=== PATIENT | female | born 1980 | race African-American/Black ===

== ENCOUNTER 2017-06-17 21:25 | Inpatient (IN) | payer MEDICAID ==
--- NOTE | 2017-06-17 22:04 | ED Physician Chart ---
Chief Complaint/HPI - Patient Information Date Seen:: 06/17/17 Time Seen:: 21:30 Chief Complaint:: Palpitations History of Present Illness:: onset x one week of palpitations, Chest Pain, Abd. Pain, dizziness, diaphoresis , pt denies H/As, Neck Pain, A/N/V/D/c, fever, chills, or urinary s/s Allergies:: Allergies Allergy/AdvReac Type Severity Reaction Status Date / Time Compazine, Metronidazole AdvReac Intermediate Uncoded 10/10/13 06:08 Vitals:: Vital Signs - 8 hr 06/17/17 21:30 Temp 97.6 F HR 78 RR 18 BP 163/107 O2 Sat % 98 Historian:: Patient Review:: Nurse's Note Reviewed Review of Systems - Review of Systems General/Constitutional: Chills, No weight loss, Weakness, No diaphoresis, No edema, No loss of appetite Skin: No skin lesions, No rash, No bruising Head: Headache, Light headed Eyes: No loss of vision, No pain, No diplopia ENT: No earache, No nasal drainage, No sore throat, No tinnitus Neck: No neck pain, No swelling, No thyromegaly, No stiffness, No mass noted Cardio Vascular: Chest pain, Palpitations, No PND, No orthopnea, No edema Pulmonary: SOB, Cough, No sputum, No wheezing GI: Nausea, Vomiting, Pain, No melena, No hematochezia, Constipation, No hematemesis G/U: No dysuria, No frequency, No hematuria Public We[employer]her: No vaginal discharge, Abnormal vaginal bleeding, No contraction Musculoskeletal: No bone or joint pain, No back pain, No muscle pain Endocrine: No polyuria, No polydipsia Psychiatric: Prior psych history, Depression, Anxiety, No suicidal ideation, No homicidal ideation, No auditory hallucination, No visual hallucination Hematopoietic: No bruising, No lymphadenopathy Allergic/Immuno: No urticaria, No angioedema Neurological: No syncope, No focal symptoms, Weakness, No paresthesia, Headache , No seizure, Dizziness, No confusion, Vertigo Past Medical History - Past Medical History Obtainable: Yes Past Medical History: HTN, CAD, Dyslipidemia, Thyroid disorder Family History: Heart disease, Diabetes Melitus, HTN Social History: Non Smoker, No Alcohol, No Drug Use, Surgical History: other (Ablation Surgery) Psychiatricy History: Depression Medication: Reviewed Family Medical History - Family Member Sister Hx Family Coronary Artery Disease: Yes Physical Exam - Physical Examination General/Constitutional: Awake, Well-developed, well-nourished, Alert, No distress, GCS 15, Non-toxic appearing, Ambulatory Head: Atraumatic Eyes: Lids, conjuctiva normal, PERRL, EOMI Skin: Nl inspection, No rash, No skin lesions, No ecchymosis, Well hydrated, No lymphadenopathy ENMT: External ears, nose nl, Nasal exam nl, Lips, teeth, gums nl Neck: Nontender, Full ROM w/o pain, No JVD, No nuchal rigidity, No bruit, No mass, No stridor Respiratory: Nl effort/Exclusion, Clear to Auscultation, No Wheeze/Rhonchi/Rales Cardio Vascular: RRR, No murmur, gallop, rubs, NL S1 S2 GI: No tenderness/rebounding/guarding, No organomegaly, No hernia, Normal BS's, Nondistended, No mass/bruits, No McBurney tenderness : No CVA tenderness Extremities: No tenderness or effusion, Full ROM, normal strength in all extremities, No edema, Normal digits & nails Neuro/Psych: Alert/oriented, DTR's symmetric, Normal sensory exam, Normal motor strength, Judgement/insight normal, Mood normal, Normal gait, No focal deficits Misc: normal gait, Normal back, No paraspinal tenderness Labs/Radiology/EKG Results - Lab Results Results: unremarkable - EKG Interpretations EKG Time:: 22:27 Rate & Rhythm: 80; NSR Comments:: LVH; non-specific st-t changes Assessment - Assessment Critical Care Time: one hour ED Septic Shock - . Is Septic Shock (SBP<90, OR Lactate>4 mmol\L) present?: No - <6hrs of presentation: Vital Signs: Vital Signs - 8 hr //17 21:30 Temp 97.6 F HR 78 RR 18 BP 163/107 O2 Sat % 98 Reassessment (Disposition) - Reassessment Reassessment Condition:: Improved - Diagnosis Diagnosis:: Dx: Chest Pain; Angina Pectoris; Palpitations; Vertigo; Dizziness; Labyrinthritis; Unstable Angina - Aftercare/Follow up Instructions Aftercare/Follow-Up Instructions:: Counseled pt regarding lab results/diagnosis & need follow up, Counseled pt & family regarding lab results/diagnosis & need follow up - Patient Disposition Discharge/Transfer:: Acute Care w/in this hosp Accepting Physician:: Dr. Madison Time Called:: 199 Time Responded:: 02:00 Admitted to:: Telemetry Spoke to:: Dr. Madison Admitting Medical Physician:: Dr. Madison Condition at Disposition:: Stable, Improved
[2017-06-17] MEDS ORDERED: Morphine Sulfate 2 mg/mL 1mL Syr IVP ONE (22:05)
[2017-06-17] MEDS ORDERED: Morphine Sulfate 2 mg/mL 1mL Syr ONE (22:18)
[2017-06-17 22:28] LABS: % BASOPHILS 0.5 % (0.0-2.0); % EOSINOPHILS 1.7 % (0.0-5.0); % LYMPHOCYTES 34.4 % (20.0-50.0); % MONOCYTES 6.6 % (2.0-10.0); % NEUTROPHILS 56.8 % (40.0-80.0); HEMATOCRIT 42.2 % (35.0-45.0); HEMOGLOBIN 14.2 gm/dL (11.7-15.5); MEAN CELL VOLUME 93.9 fl (81-100); MEAN CORPUSCULAR HEMOGLOBIN 31.6 pg (27.0-31.0); MEAN CORPUSCULAR HGB CONC 33.6 pg (28.0-36.0); MEAN PLATELET VOLUME 7.7 fl; NEUTROPHILE ABSOLUTE 3.5 Th/cmm (1.8-8.0); PLATELET COUNT 241 Th/cmm (150-400); RED CELL DISTRIBUTION WIDTH 12.4 % (11.5-20.0); WHITE BLOOD COUNT 6.1 Th/cmm (4.8-10.8)
[2017-06-17 22:43] LABS: INR 0.94 (0.5-1.4); PROTHROMBIN TIME (TEST) 9.8 SECONDS (9.5-11.5)
[2017-06-17 22:45] LABS: ALB/GLOB RATIO 1.6 (1.0-1.8); ALKALINE PHOSPHATASE 76 U/L (34-104); ANION GAP 11.5 (7.0-16.0); BILIRUBIN,TOTAL 0.5 mg/dL (0.3-1.0); BUN - UREA NITROGEN 7 mg/dL (7-25); CALCIUM SERUM 9.9 mg/dL (8.6-10.3); CARBON DIOXIDE 22.3 mEq/L (21.0-31.0); CHLORIDE 107 mEq/L (98-107); CHOLESTEROL 183 mg/dL (<200); CREATININE - SERUM 0.7 mg/dL (0.6-1.2); GLUCOSE 89 mg/dL (70-105); POTASSIUM SERUM 3.8 mEq/L (3.5-5.1); SGOT 30 U/L (13-39); SGPT/ALT 34 U/L (7-52); SODIUM SERUM 137 mEq/L (136-145); TRIGLYCERIDES 89 mg/dL (<150)
[2017-06-17 22:57] LABS: BNP 11.5 pg/mL (5.0-100.0)
[2017-06-17 23:14] LABS: TROP I < 0.01 ng/mL (0.01-0.05)
[2017-06-18] MEDS ORDERED: Aspirin 81mg Chewable Tab PO STA (00:36)
[2017-06-18] MEDS ORDERED: Aspirin 81mg Chewable Tab ONE (01:22)
[2017-06-18] MEDS ORDERED: Morphine Sulfate 2 mg/mL 1mL Syr ONE (02:01)
--- NOTE | 2017-06-18 04:12 | Admit Criteria Form ---
Admit Criteria Forms - Admit Criteria Diagnosis: DIZZINESS Clinical Indications for Admission to Inpatient Care (Place 'X' for any and all applicable criteria): Admission is indicated for ANY ONE of the following(1)(2)(3)(4): [X ]I. Inpatient admission required rather than observation care (Also use Dizziness: Observation Care as appropriate) because of ANY ONE of the following: [ ]a) Hemodynamic instability that is severe or persistent [ ]b) Signs or symptoms that are severe or persistent (eg, vomit, orthostasis, inability to ambulate) [ ]c) Cardiac arrhythmias of immediate concern [ ]d) Severe (new) neurologic findings requiring inpatient care as indicated by ANY ONE of the following(6)(7): [ ]1) Cerebral bleeding, ischemia, or vasospasm(8)(9) [ ]2) Increased intracranial pressure or hydrocephalus(10)(11)(12) [ ]3) Papilledema [ ]4) Cerebral edema [ ]5) Mass effect on CT scan [ ]e) Continuous IV infusion of anticoagulation, platelet inhibitor, vasoactive, or antiarrhythmic medication [ ]f) Cerebral bleeding, hydrocephalus, or vasospasm monitoring(14) [ ]g) Increased intracranial pressure or cerebral edema monitoring [ ]h) Vomiting that is severe or persistent [ X]i) Other condition, treatment or monitoring requiring inpatient admission [ ]II. A suspected etiology that requires admission for treatment [ ]III. Acute bacterial labyrinthitis [ ]IV. Cerebellar, brainstem, or cerebral ischemia or hemorrhage (5) Extended stay beyond goal length of stay may be needed for evaluating and treating a specific cause of dizziness, including(32) [ ]a) Head injury (Also use Traumatic Brain Injury, Nonsurgical Treatment guideline) [ ]b) New-onset vertebrobasilar vascular insufficiency [ ]c) Acute Meniere disease with intractable symptoms [ ]d) Cardiac arrhythmias or conduction defects [ ]e) Acute neurologic event causing dizziness [ ]f) Myocardial ischemia [ ]g) Acute bacterial labyrinthitis. [ ]h) Severe acute vestibular neuronitis The original [facility] [employer] content created by [facility] [employer] has been revised. The portions of the content which have been revised are identified through the use of italic text or in bold, and [employer] has neither reviewed nor approved the modified material. All other unmodified content is copyright [facility]. Please see references footnoted in the original [facility] edition 2016 Admit Criteria Met?: Yes
[2017-06-18] MEDS ORDERED: Hydrocodone/APAP 5mg/325mg Tab PO PRN (04:13)
[2017-06-18 04:42] VITALS: BP 163/103
--- NOTE | 2017-06-18 08:36 | Diagnostic Imaging Report ---
Portable chest x-ray History: Pain Allowing for portable technique the heart size is normal. No focal pulmonary parenchymal processes. No hilar or mediastinal abnormalities. Impression: No acute abnormalities.
[2017-06-18] MEDS ORDERED: Non-Formulary Item 1 EA (Alprazolam [Xanax*] 1 MG) PO PRN (10:10)
--- NOTE | 2017-06-18 11:56 | History & Physical ---
ADMIT DATE: 06/18/2017 PATIENT IDENTIFICATION: This is a 36-year-old female. CHIEF COMPLAINT: Chest pain, palpitation, dizziness, abdominal pain. HISTORY OF PRESENT ILLNESS: A 36-year-old female with history of hypertension, coronary artery disease, history of radioablation in 2013, severe gastroesophageal reflux disease, hypothyroidism, anxiety, depression, presented to Emergency Room for evaluation of above-mentioned symptoms. The patient was worked up and subsequently admitted for further management. PAST MEDICAL HISTORY: 1. Hypertension. 2. Coronary artery disease. 3. Hyperlipidemia. 4. Hypothyroidism. 5. History of radioablation surgery. 6. Anxiety, depression. 7. Obesity. MEDICATIONS AT HOME: The patient is taking, which includes Xanax, Abilify, carvedilol, meclizine, methimazole, nitroglycerin, Protonix, promethazine, Zoloft, and tramadol for the pain. ALLERGIES: THE PATIENT IS ALLERGIC TO COMPAZINE, AND METRONIDAZOLE. SOCIAL HISTORY: The patient lives in [facility]. The patient has no history of smoking cigarettes, drinking alcohol, or using street drug use. FAMILY MEDICAL HISTORY: Remarkable for cardiac diseases, diabetes, and hypertension. REVIEW OF SYSTEMS: The patient is complaining about significant amount of upper abdominal pain with some nausea. The patient is also complaining about recurrent chest pain. Denies any headache. Denies any blurred vision, double vision, dysphagia, odynophagia, runny nose, stuffy nose. No history of any seizure or syncopal episode. PHYSICAL EXAMINATION: GENERAL: The patient is alert, awake, oriented, lying in the bed without any acute distress. VITAL SIGNS: Temperature 98.6, pulse is 74, respiratory rate is 18, blood pressure is 130/70. SKIN: Warm to touch. Adequate skin turgor. No petechia, no purpura. HEENT: Normocephalic, atraumatic. Extraocular muscles are intact. Tongue was pink and coated. No oral lesions noted. No exudate noted. External auditory canal and tympanic membranes are well visualized. NECK: Supple, no JVD, no hepatojugular reflux. No lymphadenopathy, thyromegaly or carotid bruit. HEART: Both heart sounds are regular. No S3, no S4, no murmur. CHEST: Lung equal in expansion, no wheezing, no crackles. ABDOMEN: Soft, epigastric tenderness noted. Bowel sounds are present. No palpable mass. EXTREMITIES: No edema, no cyanosis. NEUROLOGIC: Nonfocal. AVAILABLE DIAGNOSTIC DATA: Performed in the Emergency Room, which include CBC, CMP, PT, PTT, EKG, chest x-ray has been reviewed. CLINICAL IMPRESSION: 1. Upper abdominal pain most likely from gastroesophageal reflux disease and severe gastritis, other etiology needs to be ruled out. 2. Chest pain, palpitation, dizziness, I suspect probably from her anxiety. 3. Hypertension. 4. Hyperthyroidism. 5. Anxiety, depression. PLAN: The patient is admitted by me to telemetry unit. Cardiology and GI consultation was requested. Cardiac enzymes were requested. Proton pump inhibitor has been added. The patient will have 3 sets of cardiac enzymes and EKG to rule out for acute myocardial infarction. The patient will be placed on clear liquid diet. We will follow the lab and we will follow the clinical science consultant's recommendations. Care plan has been reviewed and discussed with staff. [facility]# [id number]
[2017-06-19] MEDS ORDERED: Pantoprazole 40 mg EC Tab PO SCH (09:00)
== END 2017-06-18 10:30 | disposition left against medical advice (07) | DRG 241 ==
LOC: ER 21:25 → TELE 06-18 02:15
PROVIDERS: ADMIT Internal Medicine; ATTEND Internal Medicine
DX: K29.70 Gastritis, unspecified, without bleeding (principal); I25.110 Atherosclerotic heart disease of native coronary artery with unstable angina pectoris; I10 Essential (primary) hypertension; K21.9 Gastro-esophageal reflux disease without esophagitis; F41.9 Anxiety disorder, unspecified; F32.9 Major depressive disorder, single episode, unspecified; Z53.21 Procedure and treatment not carried out due to patient leaving prior to being seen by health care provider; E66.9 Obesity, unspecified; E78.5 Hyperlipidemia, unspecified; R42 Dizziness and giddiness; H83.09 Labyrinthitis, unspecified ear; Z79.899 Other long term (current) drug therapy; Z87.891 Personal history of nicotine dependence; Z68.30 Body mass index [BMI] 30.0-30.9, adult; Z88.8 Allergy status to other drugs, medicaments and biological substances; Z91.041 Radiographic dye allergy status; Z82.49 Family history of ischemic heart disease and other diseases of the circulatory system; Z83.3 Family history of diabetes mellitus; E05.90 Thyrotoxicosis, unspecified without thyrotoxic crisis or storm
CPT/HCPCS: 36415-UA; 71010-TC; 80053-TC; 80061-TC; 82550-TC; 83880-TC; 84484-TC; 84703-TC; 85025-TC; 85610-TC; 93005; 94760; 96374; 96376; J2270; Z7610